=== PATIENT | male | born 1970 | race Caucasian/White ===

== ENCOUNTER → 2020-12-19 | Outpatient (CLI) | payer OTHER ==
--- NOTE | 2020-12-19 15:22 | RAD ---
EXAM: CT left hip without contrast. HISTORY: Status post fracture fixation. Now with pain, popping and difficulty bearing weight. TECHNIQUE: CT of the left hip was performed without intravenous contrast. One or more of the followin g individualized dose reduction techniques were utilized for this examination: 1. Automated exposure control. 2. Adjustment of the mA and/or kV according to patient size. 3. Use of iterative reconstruction technique. COMPARISON: None. FINDINGS: There are changes of internal fixation of anterior and posterior column fractures. 2 mallea ble plates fixed the posterior column. Y-shaped fracture lines intersect the acetabular roof. An ante rior articular surface gap measures 9 mm. Posteriorly, there is a 1.5 cm gap that widened medially. A nother fracture line extends inferiorly along the medial acetabular wall. Finally, another fracture i s noted along the inferior pubic ramus. This fracture line demonstrates loose periosteal reaction wit hout solid bridging callus. The superior aspect of the left femoral head is flattened with approximately 50% volume loss. There i s superolateral subluxation of the femoral head. Many osseous fragments are noted throughout the hip joint. Degenerative disc disease at L5-S1 is at least moderate. Limited images of the pelvic organs reveal n o abnormality. IMPRESSION: 1. Internal fixation of a comminuted acetabular fracture as above. There are residual articular surfa ce gaps superiorly. There is diffuse periosteal reaction along the fracture lines without solid bridg ing. 2. Collapse of the superior/anterior aspect of the femoral head consistent with either avascular necr osis or a large erosion. Superolateral displacement of the remaining portion of the femoral head. Electronically signed by: Alcon Prieto MD (12/19/2020 3:20 PM) [id number]
== END ==
LOC: CT 13:27
PROVIDERS: ATTEND Preventive Medicine Occupational Medicine
DX: S72.092A Other fracture of head and neck of left femur, initial encounter for closed fracture (principal); S32.492A Other specified fracture of left acetabulum, initial encounter for closed fracture; M25.852 Other specified joint disorders, left hip; M51.37 Other intervertebral disc degeneration, lumbosacral region; X58.XXXA Exposure to other specified factors, initial encounter; Y93.89 Activity, other specified; Y92.89 Other specified places as the place of occurrence of the external cause; Y99.8 Other external cause status
CPT/HCPCS: 73700